=== PATIENT | female | born 2000 | race Caucasian/White ===

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

== ENCOUNTER 2018-01-01 13:10 | Emergency (ER) | payer OTHER ==
[~2018-01-01] VITALS: Ht 162.6 cm; Wt 63.5 kg
[~2018-01-01 13:10] MED LIST changes: +LIDO700A20 TOP; +Ultram50 MG PO
[2018-01-01] MEDS ORDERED: ASPI81CH PO (13:43)
[2018-01-01] MEDS ORDERED: Veetids 500500 MG PO (13:53)
== END 2018-01-01 14:02 | disposition home or self-care (01) ==
LOC: ER 13:10
DX: J02.9 Acute pharyngitis, unspecified (principal); Z88.5 Allergy status to narcotic agent; Z79.899 Other long term (current) drug therapy; Z79.82 Long term (current) use of aspirin
CPT/HCPCS: 99282; J1100

== ENCOUNTER 2018-02-18 22:34 | Emergency (ER) | payer OTHER ==
[~2018-02-18] VITALS: Ht 162.6 cm; Wt 63.5 kg
[~2018-02-18 22:34] MED LIST changes: +ASPI81CH PO; +Veetids 500500 MG PO
[2018-02-18] MEDS ORDERED: ASPI325EC (22:40)
== END 2018-02-18 23:49 | disposition home or self-care (01) ==
LOC: ER 22:34
DX: S29.012A Strain of muscle and tendon of back wall of thorax, initial encounter (principal); Z88.5 Allergy status to narcotic agent; X50.9XXA Other and unspecified overexertion or strenuous movements or postures, initial encounter
CPT/HCPCS: 71046; 93005; 93010; 99284-25

== ENCOUNTER 2018-03-19 21:44 | Emergency (ER) | payer OTHER ==
[~2018-03-19] VITALS: Ht 160 cm; Wt 65.8 kg
[~2018-03-19 21:44] MED LIST changes: +ASPI325EC
[2018-03-19 23:53] LABS: Source, Urine Clean Catch
[2018-03-19] MEDS ORDERED: ASPI81CH PO (23:56)
[2018-03-19] MEDS ORDERED: BIRTH CONTROL (23:56)
[2018-03-19 23:59] LABS: Bilirubin, Urine Neg (Neg); Blood, Urine Neg (Neg); Glucose Qualitative, Urine Neg (Neg); Ketones, Urine Neg (Neg); Leukocyte Esterase, Urine Neg (Neg); Nitrite, Urine Neg (Neg); Protein, Urine Neg (Neg); Urobilinogen, Urine 1+ (Normal); pH, Urine 6.5 (5.0-8.0)
[2018-03-20 00:04] LABS: BASOPHILS ABSOLUTE AUTO 0.07 K/mm3 (0.00-0.23); BASOPHILS PERCENT AUTO 1 % (0-2); EOSINOPHILS ABSOLUTE AUTO 0.06 K/mm3 (0.00-0.68); EOSINOPHILS PERCENT AUTO 1 % (0-6); Hematocrit 42.1 % (33.0-51.0); Hemoglobin 13.3 g/dL (11.5-16.0); IMMATURE GRAN ABSOLUTE AUTO 0.04 K/mm3 (0.00-0.10); IMMATURE GRAN PERCENT AUTO 0 % (0-1); LYMPHOCYTES ABSOLUTE AUTO 2.69 K/mm3 (0.84-5.20); LYMPHOCYTES PERCENT AUTO 28 % (21-46); MONOCYTES ABSOLUTE AUTO 0.98 K/mm3 (0.16-1.47); MONOCYTES PERCENT AUTO 10 % (4-13); Mean Corpuscular HGB 29.5 pg (26.0-34.0); Mean Corpuscular HGB Conc 31.6 g/dL (31.5-36.5); Mean Corpuscular Volume 93 fL (80-100); Mean Platelet Volume 11.4 fL (9.1-12.4); NEUTROPHILS ABSOLUTE AUTO 5.77 K/mm3 (1.96-9.15); NEUTROPHILS PERCENT AUTO 60 % (41-73); Platelet Count 310 K/mm3 (150-400); RDW Standard Deviation 44.7 fL (35.1-46.3); Red Blood Cell Count 4.51 M/mm3 (3.80-5.20); White Blood Cell Count 9.61 K/mm3 (4.00-11.30)
[2018-03-20 00:11] LABS: Appearance, Urine Hazy (Clear); Color, Urine Yellow (P-Yellow)
[2018-03-20 00:12] LABS: Amorphous Light (0-Heavy); Bacteria Rare /hpf; Mucus Mod (0-Heavy); Red Blood Cells, Urine Not Seen /hpf (0-2); Squamous Epithelial Cells Few /hpf (Few); White Blood Cells, Urine 0-2 /hpf (0-5)
[2018-03-20 00:22] LABS: Alanine Aminotransfer (ALT/SGP 47 U/L (12-78); Albumin, Blood 3.8 g/dL (3.4-5.0); Alk Phos 82 U/L (45-116); Anion Gap 10 mmol/L (6-16); Aspartate Aminotrans (AST/SGOT 29 U/L (12-37); Bilirubin, Total 0.5 mg/dL (0.1-1.0); Blood Urea Nitrogen 16 mg/dL (8-21); Bun/Creatinine Ratio 23.7 (12.0-20.0); CO2, Blood 26 mmol/L (21-32); Chloride, Blood 106 mmol/L (98-108); Creatinine, Blood 0.67 mg/dL (0.40-1.00); Globulin, Blood 3.9 g/dL (2.2-4.0); Glomerular Filtration Rate >60 (60-); Glucose, Blood 93 mg/dL (70-99); Sodium, Blood 142 mmol/L (136-145); Total Protein, Blood 7.7 g/dL (6.4-8.2)
[2018-03-20] MEDS ORDERED: Vibramycin100 MG PO (01:20)
== END 2018-03-20 01:37 | disposition home or self-care (01) ==
LOC: ER 21:44
PROVIDERS: Emergency Medicine
DX: N89.8 Other specified noninflammatory disorders of vagina (principal); Z79.82 Long term (current) use of aspirin
CPT/HCPCS: 36415; 80053; 81001; 81025; 83690; 85025; 96374; 99284-25; J0696; J2405

== ENCOUNTER 2018-08-08 23:23 | Emergency (ER) | payer OTHER ==
[~2018-08-08] VITALS: Ht 162.6 cm; Wt 65.8 kg
[~2018-08-08 23:23] MED LIST changes: +BIRTH CONTROL; +Vibramycin100 MG PO
== END 2018-08-09 02:05 | disposition home or self-care (01) ==
LOC: ER 23:23
DX: S09.90XA Unspecified injury of head, initial encounter (principal); W22.8XXA Striking against or struck by other objects, initial encounter; Z88.5 Allergy status to narcotic agent; Z79.82 Long term (current) use of aspirin
CPT/HCPCS: 99283

== ENCOUNTER → 2018-08-27 | Outpatient (CLI) | payer OTHER ==
[2018-08-27 19:07] LABS: BASOPHILS ABSOLUTE AUTO 0.06 K/mm3 (0.00-0.23); BASOPHILS PERCENT AUTO 1 % (0-2); EOSINOPHILS PERCENT AUTO 1 % (0-6); Hematocrit 39.5 % (33.0-51.0); Hemoglobin 12.9 g/dL (11.5-16.0); IMMATURE GRAN ABSOLUTE AUTO 0.02 K/mm3 (0.00-0.10); IMMATURE GRAN PERCENT AUTO 0 % (0-1); LYMPHOCYTES PERCENT AUTO 26 % (21-46); MONOCYTES ABSOLUTE AUTO 0.63 K/mm3 (0.16-1.47); MONOCYTES PERCENT AUTO 8 % (4-13); Mean Corpuscular HGB 29.6 pg (26.0-34.0); Mean Corpuscular HGB Conc 32.7 g/dL (31.5-36.5); Mean Corpuscular Volume 91 fL (80-100); Mean Platelet Volume 11.9 fL (9.1-12.4); NEUTROPHILS ABSOLUTE AUTO 4.84 K/mm3 (1.96-9.15); NEUTROPHILS PERCENT AUTO 63 % (41-73); Platelet Count 236 K/mm3 (150-400); RDW Coefficient Variation 12.4 % (11.7-14.2); RDW Standard Deviation 41.1 fL (35.1-46.3); Red Blood Cell Count 4.36 M/mm3 (3.80-5.20); White Blood Cell Count 7.65 K/mm3 (4.00-11.30)
[2018-08-27 20:55] LABS: Alanine Aminotransfer (ALT/SGP 39 U/L (12-78); Albumin/Globulin Ratio 1.2 (0.8-1.8); Alk Phos 84 U/L (50-136); Anion Gap 8 mmol/L (6-16); Aspartate Aminotrans (AST/SGOT 28 U/L (12-37); Bilirubin, Total 0.6 mg/dL (0.1-1.0); Blood Urea Nitrogen 13 mg/dL (8-24); Bun/Creatinine Ratio 18.1 (12.0-20.0); CO2, Blood 26 mmol/L (21-32); Calcium, Blood 8.8 mg/dL (8.5-10.1); Chloride, Blood 107 mmol/L (98-108); Creatinine, Blood 0.72 mg/dL (0.40-1.00); Globulin, Blood 3.4 g/dL (2.2-4.0); Glomerular Filtration Rate >60 (60-); Glucose, Blood 83 mg/dL (70-99); Potassium, Blood 3.5 mmol/L (3.5-5.5); Sodium, Blood 141 mmol/L (136-145); Total Protein, Blood 7.4 g/dL (6.4-8.2)
[2018-08-27 20:59] LABS: Thyroid Stimulating Hormone 0.961 uIU/mL (0.360-4.800)
== END | disposition home or self-care (01) ==
LOC: LAB SHORT 19:01 → LAB EV 19:01
PROVIDERS: Physician Assistant
DX: N91.2 Amenorrhea, unspecified (principal)
CPT/HCPCS: 80053; 84443; 84702; 85025

== ENCOUNTER 2018-10-19 00:58 | Emergency (ER) | payer OTHER ==
[~2018-10-19] VITALS: Ht 162.6 cm; Wt 65.8 kg
[~2018-10-19 00:58] MED LIST changes: +ASPI325 PO
[2018-10-19] MEDS ORDERED: Microgestin Fe1 EAC1 PO (01:11)
== END 2018-10-19 01:23 | disposition home or self-care (01) ==
LOC: ER 00:58
DX: T39.011A Poisoning by aspirin, accidental (unintentional), initial encounter (principal); Z88.5 Allergy status to narcotic agent; Z79.82 Long term (current) use of aspirin; Z79.899 Other long term (current) drug therapy
CPT/HCPCS: 99282

== ENCOUNTER → 2018-10-23 | Outpatient (CLI) | payer OTHER ==
[~2018-10-23] MED LIST changes: +Microgestin Fe1 EAC1 PO; +Vistaril25 MG PO
[2018-10-23 14:01] LABS: BASOPHILS ABSOLUTE AUTO 0.04 K/mm3 (0.00-0.23); BASOPHILS PERCENT AUTO 1 % (0-2); EOSINOPHILS ABSOLUTE AUTO 0.05 K/mm3 (0.00-0.68); EOSINOPHILS PERCENT AUTO 1 % (0-6); Hematocrit 39.8 % (33.0-51.0); Hemoglobin 13.2 g/dL (11.5-16.0); IMMATURE GRAN ABSOLUTE AUTO 0.02 K/mm3 (0.00-0.10); IMMATURE GRAN PERCENT AUTO 0 % (0-1); LYMPHOCYTES ABSOLUTE AUTO 1.36 K/mm3 (0.84-5.20); LYMPHOCYTES PERCENT AUTO 17 % (21-46); MONOCYTES ABSOLUTE AUTO 0.61 K/mm3 (0.16-1.47); MONOCYTES PERCENT AUTO 7 % (4-13); Mean Corpuscular HGB 30.1 pg (26.0-34.0); Mean Corpuscular HGB Conc 33.2 g/dL (31.5-36.5); Mean Corpuscular Volume 91 fL (80-100); Mean Platelet Volume 11.8 fL (9.1-12.4); NEUTROPHILS ABSOLUTE AUTO 6.16 K/mm3 (1.96-9.15); NEUTROPHILS PERCENT AUTO 75 % (41-73); Platelet Count 241 K/mm3 (150-400); RDW Coefficient Variation 12.7 % (11.7-14.2); RDW Standard Deviation 41.8 fL (35.1-46.3); Red Blood Cell Count 4.39 M/mm3 (3.80-5.20); White Blood Cell Count 8.24 K/mm3 (4.00-11.30)
[2018-10-23 14:11] LABS: Anion Gap 8 mmol/L (6-16); Blood Urea Nitrogen 10 mg/dL (8-24); Bun/Creatinine Ratio 13.5 (12.0-20.0); CO2, Blood 28 mmol/L (21-32); Calcium, Blood 9.3 mg/dL (8.5-10.1); Chloride, Blood 103 mmol/L (98-108); Creatinine, Blood 0.74 mg/dL (0.40-1.00); Glomerular Filtration Rate >60 (60-); Glucose, Blood 104 mg/dL (70-99); Sodium, Blood 139 mmol/L (136-145)
[2018-10-24 13:22] LABS: Candida species (DNA Probe) Positive (NEGATIVE); G. vaginalis (DNA Probe) Negative (NEGATIVE); T. vaginalis (DNA Probe) Negative (NEGATIVE)
[2018-10-25 05:09] LABS: CHLAMYDIA TRACHOMATIS, NAA Negative (Negative); NEISSERIA GONORRHOEAE, NAA Negative (Negative)
== END | disposition home or self-care (01) ==
LOC: LAB SHORT 13:53 → LAB EV 13:53
PROVIDERS: Physician Assistant
DX: R10.30 Lower abdominal pain, unspecified (principal); N91.1 Secondary amenorrhea
CPT/HCPCS: 80048; 84702; 85025; 87480; 87491; 87510; 87591; 87660

== ENCOUNTER 2018-11-22 20:29 | Emergency (ER) | payer OTHER ==
[~2018-11-22] VITALS: Ht 162.6 cm; Wt 68.0 kg
[~2018-11-22 20:29] MED LIST changes: -Vistaril25 MG PO
[2018-11-22 21:18] LABS: BASOPHILS ABSOLUTE AUTO 0.06 K/mm3 (0.00-0.23); BASOPHILS PERCENT AUTO 1 % (0-2); EOSINOPHILS ABSOLUTE AUTO 0.04 K/mm3 (0.00-0.68); EOSINOPHILS PERCENT AUTO 0 % (0-6); Hematocrit 43.3 % (33.0-51.0); Hemoglobin 13.8 g/dL (11.5-16.0); IMMATURE GRAN ABSOLUTE AUTO 0.02 K/mm3 (0.00-0.10); IMMATURE GRAN PERCENT AUTO 0 % (0-1); LYMPHOCYTES ABSOLUTE AUTO 2.61 K/mm3 (0.84-5.20); LYMPHOCYTES PERCENT AUTO 27 % (21-46); MONOCYTES ABSOLUTE AUTO 0.78 K/mm3 (0.16-1.47); MONOCYTES PERCENT AUTO 8 % (4-13); Mean Corpuscular HGB 29.9 pg (26.0-34.0); Mean Corpuscular HGB Conc 31.9 g/dL (31.5-36.5); Mean Corpuscular Volume 94 fL (80-100); NEUTROPHILS ABSOLUTE AUTO 6.14 K/mm3 (1.96-9.15); NEUTROPHILS PERCENT AUTO 64 % (41-73); Platelet Count 278 K/mm3 (150-400); RDW Coefficient Variation 12.4 % (11.7-14.2); RDW Standard Deviation 42.5 fL (35.1-46.3); Red Blood Cell Count 4.62 M/mm3 (3.80-5.20); White Blood Cell Count 9.65 K/mm3 (4.00-11.30)
[2018-11-22 21:37] LABS: Alanine Aminotransfer (ALT/SGP 37 U/L (12-78); Albumin, Blood 4.3 g/dL (3.4-5.0); Albumin/Globulin Ratio 1.1 (0.8-1.8); Alk Phos 93 U/L (50-136); Anion Gap 6 mmol/L (6-16); Aspartate Aminotrans (AST/SGOT 42 U/L (12-37); Bilirubin, Total 0.7 mg/dL (0.1-1.0); Blood Urea Nitrogen 12 mg/dL (8-24); Bun/Creatinine Ratio 16.3 (12.0-20.0); CO2, Blood 26 mmol/L (21-32); Calcium, Blood 9.3 mg/dL (8.5-10.1); Chloride, Blood 110 mmol/L (98-108); Creatinine, Blood 0.73 mg/dL (0.40-1.00); Globulin, Blood 3.8 g/dL (2.2-4.0); Glomerular Filtration Rate >60 (60-); Glucose, Blood 97 mg/dL (70-99); Potassium, Blood 3.7 mmol/L (3.5-5.5); Sodium, Blood 142 mmol/L (136-145); Total Protein, Blood 8.1 g/dL (6.4-8.2); Troponin I <0.015 ng/mL (0.000-0.040)
[2018-11-22] MEDS ORDERED: Vistaril25 MG PO (21:59)
== END 2018-11-22 22:29 | disposition home or self-care (01) ==
LOC: ER 20:29
PROVIDERS: Physician Assistant
DX: K21.9 Gastro-esophageal reflux disease without esophagitis (principal); F43.9 Reaction to severe stress, unspecified; F41.9 Anxiety disorder, unspecified; Z88.5 Allergy status to narcotic agent; Z79.82 Long term (current) use of aspirin; Z79.899 Other long term (current) drug therapy
CPT/HCPCS: 36415; 71046; 80053; 84484; 85025; 99285-25

== ENCOUNTER 2019-06-07 20:52 | Emergency (ER) | payer OTHER ==
[~2019-06-07] VITALS: Ht 162.6 cm; Wt 65.8 kg
[~2019-06-07 20:52] MED LIST changes: +Vistaril25 MG PO
[2019-06-07 22:44] LABS: BASOPHILS ABSOLUTE AUTO 0.05 K/mm3 (0.00-0.23); BASOPHILS PERCENT AUTO 1 % (0-2); EOSINOPHILS ABSOLUTE AUTO 0.07 K/mm3 (0.00-0.68); EOSINOPHILS PERCENT AUTO 1 % (0-6); Hematocrit 40.8 % (33.0-51.0); Hemoglobin 13.4 g/dL (11.5-16.0); IMMATURE GRAN ABSOLUTE AUTO 0.01 K/mm3 (0.00-0.10); IMMATURE GRAN PERCENT AUTO 0 % (0-1); LYMPHOCYTES ABSOLUTE AUTO 1.83 K/mm3 (0.84-5.20); LYMPHOCYTES PERCENT AUTO 26 % (21-46); MONOCYTES ABSOLUTE AUTO 0.74 K/mm3 (0.16-1.47); MONOCYTES PERCENT AUTO 11 % (4-13); Mean Corpuscular HGB 29.8 pg (26.0-34.0); Mean Corpuscular HGB Conc 32.8 g/dL (31.5-36.5); Mean Corpuscular Volume 91 fL (80-100); Mean Platelet Volume 11.6 fL (9.1-12.4); NEUTROPHILS ABSOLUTE AUTO 4.27 K/mm3 (1.96-9.15); NEUTROPHILS PERCENT AUTO 61 % (41-73); Platelet Count 256 K/mm3 (150-400); RDW Coefficient Variation 12.3 % (11.7-14.2); RDW Standard Deviation 41.1 fL (35.1-46.3); Red Blood Cell Count 4.49 M/mm3 (3.80-5.20); White Blood Cell Count 6.97 K/mm3 (4.00-11.30)
[2019-06-07 23:05] LABS: Alanine Aminotransfer (ALT/SGP 38 U/L (12-78); Albumin, Blood 3.9 g/dL (3.4-5.0); Albumin/Globulin Ratio 1.1 (0.8-1.8); Alk Phos 80 U/L (50-136); Anion Gap 6 mmol/L (6-16); Aspartate Aminotrans (AST/SGOT 26 U/L (12-37); Bilirubin, Total 0.6 mg/dL (0.1-1.0); Blood Urea Nitrogen 12 mg/dL (8-24); Bun/Creatinine Ratio 16.7 (12.0-20.0); CO2, Blood 26 mmol/L (21-32); Chloride, Blood 109 mmol/L (98-108); Creatinine, Blood 0.72 mg/dL (0.40-1.00); Globulin, Blood 3.7 g/dL (2.2-4.0); Glomerular Filtration Rate >60 (60-); Glucose, Blood 90 mg/dL (70-99); Magnesium, Blood 1.9 mg/dL (1.6-2.4); Potassium, Blood 3.7 mmol/L (3.5-5.5); Sodium, Blood 141 mmol/L (136-145); Total Protein, Blood 7.6 g/dL (6.4-8.2); Troponin I <0.015 ng/mL (0.000-0.040)
== END 2019-06-08 01:10 | disposition home or self-care (01) ==
LOC: ER 20:52
PROVIDERS: Emergency Medicine
DX: R00.2 Palpitations (principal); R00.0 Tachycardia, unspecified; R42 Dizziness and giddiness; Q21.3 Tetralogy of Fallot; Z88.5 Allergy status to narcotic agent; Z79.82 Long term (current) use of aspirin
CPT/HCPCS: 71046; 71260; 80053; 83735; 84484; 85025; 85379; 93005; 93010; 99285-25; Q9967

== ENCOUNTER 2019-07-18 22:14 | Emergency (ER) | payer OTHER ==
[~2019-07-18] VITALS: Ht 160 cm; Wt 65.8 kg
[2019-07-18 22:45] LABS: Influenza A Negative (NEGATIVE); Influenza B Negative (NEGATIVE)
[2019-07-18] MEDS ORDERED: OSELTAMIVIR PHO75 MG PO (23:48)
== END 2019-07-19 00:10 | disposition home or self-care (01) ==
LOC: ER 22:14
PROVIDERS: Emergency Medicine
DX: J11.1 Influenza due to unidentified influenza virus with other respiratory manifestations (principal); Z88.5 Allergy status to narcotic agent; Z79.82 Long term (current) use of aspirin
CPT/HCPCS: 87804; 99283

== ENCOUNTER → 2019-10-12 | Outpatient (CLI) | payer OTHER ==
[~2019-10-12] MED LIST changes: +OSELTAMIVIR PHO75 MG PO
[2019-10-26 12:12] LABS: CHLAMYDIA TRACHOMATIS, NAA Negative (Negative); NEISSERIA GONORRHOEAE, NAA Negative (Negative)
== END | disposition home or self-care (01) ==
LOC: LAB 12:22 → LAB SHORT 12:22
PROVIDERS: Obstetrics & Gynecology
DX: Z01.419 Encounter for gynecological examination (general) (routine) without abnormal findings (principal); Z11.3 Encounter for screening for infections with a predominantly sexual mode of transmission
CPT/HCPCS: 87491; 87591; 87624; 87625; G0123

== ENCOUNTER 2020-01-14 21:08 | Emergency (ER) | payer OTHER ==
[~2020-01-14] VITALS: Ht 160 cm; Wt 81.7 kg
[~2020-01-14 21:08] MED LIST changes: +AUROVELA FE PO
== END 2020-01-14 22:57 | disposition left against medical advice (07) ==
LOC: ER 21:08
DX: R04.0 Epistaxis (principal); R07.9 Chest pain, unspecified; R11.0 Nausea; Z79.82 Long term (current) use of aspirin; Z87.74 Personal history of (corrected) congenital malformations of heart and circulatory system; Z79.3 Long term (current) use of hormonal contraceptives; Z53.21 Procedure and treatment not carried out due to patient leaving prior to being seen by health care provider
CPT/HCPCS: 99282

== ENCOUNTER → 2020-02-21 | Outpatient (CLI) | payer OTHER | END | disposition home or self-care (01) | LOC: LAB SHORT 12:37 → LAB EV 12:37 | DX: J02.9 Acute pharyngitis, unspecified (principal) | CPT/HCPCS: 87081 ==

== ENCOUNTER → 2021-04-05 | Outpatient (CLI) | payer OTHER ==
[2021-04-09 14:11] LABS: HPV 16 Negative (Negative); HPV 18 Negative (Negative); HPV OTHER HR TYPES Negative (Negative)
== END | disposition home or self-care (01) ==
LOC: LAB 17:12 → LAB SHORT 17:12
PROVIDERS: Obstetrics & Gynecology
DX: Z01.419 Encounter for gynecological examination (general) (routine) without abnormal findings (principal)
CPT/HCPCS: 87624; G0123

== ENCOUNTER 2021-09-11 20:27 | Emergency (ER) | payer OTHER ==
[~2021-09-11] VITALS: Ht 167.6 cm; Wt 72.6 kg
[2021-09-11 20:57] LABS: BASOPHILS ABSOLUTE AUTO 0.06 K/mm3 (0.00-0.23); BASOPHILS PERCENT AUTO 1 % (0-2); EOSINOPHILS ABSOLUTE AUTO 0.12 K/mm3 (0.00-0.68); EOSINOPHILS PERCENT AUTO 1 % (0-6); Hematocrit 40.5 % (33.0-51.0); Hemoglobin 13.4 g/dL (11.5-16.0); IMMATURE GRAN ABSOLUTE AUTO 0.03 K/mm3 (0.00-0.10); IMMATURE GRAN PERCENT AUTO 0 % (0-1); LYMPHOCYTES PERCENT AUTO 32 % (21-46); MONOCYTES ABSOLUTE AUTO 0.88 K/mm3 (0.16-1.47); MONOCYTES PERCENT AUTO 10 % (4-13); Mean Corpuscular HGB 30.2 pg (26.0-34.0); Mean Corpuscular HGB Conc 33.1 g/dL (31.5-36.5); Mean Corpuscular Volume 91 fL (80-100); Mean Platelet Volume 11.4 fL (9.1-12.4); NEUTROPHILS PERCENT AUTO 56 % (41-73); Platelet Count 243 K/mm3 (150-400); RDW Coefficient Variation 12.5 % (11.7-14.2); RDW Standard Deviation 42.4 fL (35.1-46.3); Red Blood Cell Count 4.43 M/mm3 (3.80-5.20); White Blood Cell Count 8.79 K/mm3 (4.00-11.30)
[2021-09-11 21:22] LABS: Alanine Aminotransfer (ALT/SGP 40 U/L (12-78); Albumin, Blood 3.9 g/dL (3.4-5.0); Albumin/Globulin Ratio 1.2 (0.8-1.8); Alk Phos 85 U/L (50-136); Anion Gap 6 mmol/L (6-16); Aspartate Aminotrans (AST/SGOT 22 U/L (12-37); Bilirubin, Total 0.7 mg/dL (0.1-1.0); Blood Urea Nitrogen 11 mg/dL (8-24); Bun/Creatinine Ratio 16.4 (12.0-20.0); CO2, Blood 24 mmol/L (21-32); Chloride, Blood 110 mmol/L (98-108); Creatinine, Blood 0.67 mg/dL (0.40-1.00); Globulin, Blood 3.3 g/dL (2.2-4.0); Glomerular Filtration Rate >60 (60-); Glucose, Blood 103 mg/dL (70-99); Potassium, Blood 3.7 mmol/L (3.5-5.5); Sodium, Blood 140 mmol/L (136-145); Total Protein, Blood 7.2 g/dL (6.4-8.2)
[2021-09-11 22:17] LABS: Source, Urine Clean Catch
[2021-09-11 22:19] LABS: Bilirubin, Urine Neg (Neg); Blood, Urine Neg (Neg); Glucose Qualitative, Urine Neg (Neg); Ketones, Urine Neg (Neg); Leukocyte Esterase, Urine Neg (Neg); Nitrite, Urine Neg (Neg); Protein, Urine Neg (Neg); Urobilinogen, Urine NORM (Normal); pH, Urine 6.5 (5.0-8.0)
[2021-09-11 22:24] LABS: Appearance, Urine Clear (Clear); Color, Urine Pale Yellow (P-Yellow)
== END 2021-09-11 22:57 | disposition home or self-care (01) ==
LOC: ER 20:27
PROVIDERS: Physician Assistant
DX: M79.604 Pain in right leg (principal); L53.9 Erythematous condition, unspecified; Z88.5 Allergy status to narcotic agent; Z79.899 Other long term (current) drug therapy
CPT/HCPCS: 36415; 80053; 81003; 83690; 84484; 85025

== ENCOUNTER → 2022-08-28 | Outpatient (CLI) | payer OTHER ==
[2022-08-30 11:11] LABS: HPV 16 Negative (Negative); HPV 18 Negative (Negative); HPV OTHER HR TYPES Negative (Negative)
== END | disposition home or self-care (01) ==
LOC: LAB 17:25 → LAB SHORT 17:25
PROVIDERS: Obstetrics & Gynecology
DX: Z01.419 Encounter for gynecological examination (general) (routine) without abnormal findings (principal)
CPT/HCPCS: 87624; G0145

== ENCOUNTER 2022-10-08 11:51 | Emergency (ER) | payer OTHER ==
[~2022-10-08] VITALS: Ht 160 cm; Wt 90.7 kg
[2022-10-08 12:26] LABS: BASOPHILS ABSOLUTE AUTO 0.04 K/mm3 (0.00-0.23); BASOPHILS PERCENT AUTO 0 % (0-2); EOSINOPHILS ABSOLUTE AUTO 0.09 K/mm3 (0.00-0.68); EOSINOPHILS PERCENT AUTO 1 % (0-6); Hematocrit 40.9 % (33.0-51.0); Hemoglobin 13.2 g/dL (11.5-16.0); IMMATURE GRAN ABSOLUTE AUTO 0.03 K/mm3 (0.00-0.10); IMMATURE GRAN PERCENT AUTO 0 % (0-1); LYMPHOCYTES PERCENT AUTO 18 % (21-46); MONOCYTES ABSOLUTE AUTO 0.86 K/mm3 (0.16-1.47); MONOCYTES PERCENT AUTO 9 % (4-13); Mean Corpuscular HGB 28.9 pg (26.0-34.0); Mean Corpuscular HGB Conc 32.3 g/dL (31.5-36.5); Mean Corpuscular Volume 90 fL (80-100); Mean Platelet Volume 11.4 fL (9.1-12.4); NEUTROPHILS ABSOLUTE AUTO 6.89 K/mm3 (1.96-9.15); NEUTROPHILS PERCENT AUTO 72 % (41-73); Platelet Count 277 K/mm3 (150-400); RDW Coefficient Variation 12.6 % (11.7-14.2); RDW Standard Deviation 41.3 fL (35.1-46.3); Red Blood Cell Count 4.57 M/mm3 (3.80-5.20); White Blood Cell Count 9.61 K/mm3 (4.00-11.30)
[2022-10-08 12:49] LABS: Albumin, Blood 3.7 g/dL (3.4-5.0); Bilirubin, Total 0.7 mg/dL (0.1-1.0); Bun/Creatinine Ratio 16.8 (12.0-20.0); Creatinine, Blood 0.71 mg/dL (0.40-1.00); Globulin, Blood 3.7 g/dL (2.2-4.0); Potassium, Blood 3.8 mmol/L (3.5-5.5); Total Protein, Blood 7.4 g/dL (6.4-8.2)
[2022-10-08 17:30] VITALS: BP 130/85
== END 2022-10-08 17:43 | disposition home or self-care (01) ==
LOC: ER 11:51
PROVIDERS: Physician Assistant
DX: R07.9 Chest pain, unspecified (principal); Z88.5 Allergy status to narcotic agent; Z95.3 Presence of xenogenic heart valve; Z79.82 Long term (current) use of aspirin
CPT/HCPCS: 71046; 71260; 80053; 84484; 84703; 85025; 85379; 93005; 93010; Q9967

== ENCOUNTER → 2023-02-28 | Outpatient (CLI) | payer OTHER | LOC: LAB SHORT 16:05 → LAB 16:05 | DX: N39.0 Urinary tract infection, site not specified (principal) | CPT/HCPCS: 87086 ==

== ENCOUNTER 2023-03-16 02:39 | Emergency (ER) | payer OTHER ==
[~2023-03-16] VITALS: Ht 160 cm; Wt 97.5 kg
[2023-03-16] MEDS ORDERED: ASPI325 PO (02:54)
[2023-03-16 03:09] LABS: BASOPHILS ABSOLUTE AUTO 0.06 K/mm3 (0.00-0.23); BASOPHILS PERCENT AUTO 1 % (0-2); EOSINOPHILS ABSOLUTE AUTO 0.36 K/mm3 (0.00-0.68); EOSINOPHILS PERCENT AUTO 3 % (0-6); Hematocrit 40.3 % (33.0-51.0); IMMATURE GRAN ABSOLUTE AUTO 0.03 K/mm3 (0.00-0.10); IMMATURE GRAN PERCENT AUTO 0 % (0-1); LYMPHOCYTES ABSOLUTE AUTO 2.28 K/mm3 (0.84-5.20); LYMPHOCYTES PERCENT AUTO 21 % (21-46); MONOCYTES ABSOLUTE AUTO 1.41 K/mm3 (0.16-1.47); MONOCYTES PERCENT AUTO 13 % (4-13); Mean Corpuscular HGB 29.1 pg (26.0-34.0); Mean Corpuscular HGB Conc 32.3 g/dL (31.5-36.5); Mean Corpuscular Volume 90 fL (80-100); Mean Platelet Volume 11.4 fL (9.1-12.4); NEUTROPHILS ABSOLUTE AUTO 6.54 K/mm3 (1.96-9.15); NEUTROPHILS PERCENT AUTO 61 % (41-73); Platelet Count 290 K/mm3 (150-400); RDW Coefficient Variation 13.2 % (11.7-14.2); RDW Standard Deviation 43.5 fL (35.1-46.3); Red Blood Cell Count 4.46 M/mm3 (3.80-5.20); White Blood Cell Count 10.68 K/mm3 (4.00-11.30)
[2023-03-16 03:37] LABS: Alanine Aminotransfer (ALT/SGP 40 U/L (12-78); Albumin, Blood 3.5 g/dL (3.4-5.0); Albumin/Globulin Ratio 0.9 (0.8-1.8); Alk Phos 111 U/L (50-136); Anion Gap 5 mmol/L (6-16); Aspartate Aminotrans (AST/SGOT 23 U/L (12-37); Beta HCG, Quantitative, Serum <1 mIU/mL (0-3); Bilirubin, Total 0.5 mg/dL (0.1-1.0); Blood Urea Nitrogen 14 mg/dL (8-24); Bun/Creatinine Ratio 16.1 (12.0-20.0); CO2, Blood 25 mmol/L (21-32); Calcium, Blood 8.4 mg/dL (8.5-10.1); Chloride, Blood 111 mmol/L (98-108); Creatinine, Blood 0.87 mg/dL (0.40-1.00); Globulin, Blood 3.9 g/dL (2.2-4.0); Glomerular Filtration Rate 95 (60-); Glucose, Blood 108 mg/dL (70-99); Potassium, Blood 3.5 mmol/L (3.5-5.5); Sodium, Blood 141 mmol/L (136-145); Total Protein, Blood 7.4 g/dL (6.4-8.2)
[2023-03-16 05:28] VITALS: BP 132/90
== END 2023-03-16 05:29 | disposition home or self-care (01) ==
LOC: ER 02:39
PROVIDERS: Student in an Organized Health Care Education/Training Program
DX: O03.9 Complete or unspecified spontaneous abortion without complication (principal); Z88.0 Allergy status to penicillin; Z88.5 Allergy status to narcotic agent; Z79.82 Long term (current) use of aspirin
CPT/HCPCS: 80053; 84702; 85025; 86900; 86901; 99284-25; A9270

== ENCOUNTER → 2023-04-21 | Outpatient (CLI) | payer OTHER | END | disposition home or self-care (01) | LOC: LAB 12:00 → LAB SHORT 12:00 | DX: R30.0 Dysuria (principal) | CPT/HCPCS: 87086 ==

== ENCOUNTER → 2023-05-08 | Outpatient (CLI) | payer OTHER ==
[2023-05-08 18:02] LABS: Source, Urine Clean Catch
[2023-05-08 19:53] LABS: Bacteria Few /hpf; Red Blood Cells, Urine 0-2 /hpf (0-2); Squamous Epithelial Cells Few /hpf (Few); White Blood Cells, Urine 0-2 /hpf (0-5)
[2023-05-08 19:54] LABS: Transitional Epithelial Cells Rare /hpf (0-Rare)
[2023-05-08 19:55] LABS: U Amphetamine Screen Not Detected; U Barbituate Screen Not Detected; U Benzodiazapine Screen Not Detected; U Buprenorphine Screen Not Detected; U Cannabinoids Screen Not Detected; U Cocaine Screen Not Detected; U Methadone Screen Not Detected; U Methamphetamine Screen Not Detected; U Opiates Screen Not Detected; U Oxycodone Screen Not Detected; U Phencyclidine Screen Not Detected
== END ==
LOC: LAB 18:00 → LAB SHORT 18:00
PROVIDERS: Obstetrics & Gynecology
DX: Z34.01 Encounter for supervision of normal first pregnancy, first trimester (principal)
CPT/HCPCS: 81015; 87086

== ENCOUNTER → 2023-05-17 | Outpatient (CLI) | payer OTHER | LOC: LAB SHORT 11:00 → LAB 11:00 | DX: R30.0 Dysuria (principal) | CPT/HCPCS: 87086 ==

== ENCOUNTER → 2023-09-10 | Outpatient (CLI) | payer OTHER | END | disposition home or self-care (01) | LOC: LAB 18:46 → LAB SHORT 18:46 | DX: R30.0 Dysuria (principal) ==

== ENCOUNTER → 2023-09-16 | Outpatient (CLI) | payer OTHER ==
[2023-09-16 17:02] LABS: Source, Urine Clean Catch
[2023-09-16 19:27] LABS: Bacteria Many /hpf; Red Blood Cells, Urine Not Seen /hpf (0-2); Squamous Epithelial Cells Mod /hpf (Few)
[2023-09-16 19:58] LABS: Bacterial Vaginosis PCR Negative (NEGATIVE); Candida Group, PCR NOT DETECTED (NOT DETECT); Candida glabrata-krusei, PCR NOT DETECTED (NOT DETECT)
== END | disposition home or self-care (01) ==
LOC: LAB 16:57 → LAB SHORT 16:57
PROVIDERS: Obstetrics & Gynecology
DX: N76.0 Acute vaginitis (principal); R30.0 Dysuria
CPT/HCPCS: 81015; 87086; 87481; 87661; 87801

== ENCOUNTER 2023-12-01 20:23 | Observation (INO) | payer OTHER ==
[~2023-12-01] VITALS: Ht 162.6 cm; Wt 106.2 kg
[2023-12-01] VITALS (13 sets, daily range): BP systolic 115–130; BP diastolic 58–69
[2023-12-01 21:05] LABS: BASOPHILS ABSOLUTE AUTO 0.03 K/mm3 (0.00-0.23); BASOPHILS PERCENT AUTO 0 % (0-2); EOSINOPHILS ABSOLUTE AUTO 0.23 K/mm3 (0.00-0.68); EOSINOPHILS PERCENT AUTO 2 % (0-6); Hematocrit 31.7 % (33.0-51.0); Hemoglobin 10.6 g/dL (11.5-16.0); IMMATURE GRAN ABSOLUTE AUTO 0.05 K/mm3 (0.00-0.10); IMMATURE GRAN PERCENT AUTO 1 % (0-1); LYMPHOCYTES ABSOLUTE AUTO 1.89 K/mm3 (0.84-5.20); LYMPHOCYTES PERCENT AUTO 18 % (21-46); MONOCYTES ABSOLUTE AUTO 0.75 K/mm3 (0.16-1.47); MONOCYTES PERCENT AUTO 7 % (4-13); Mean Corpuscular HGB 30.3 pg (26.0-34.0); Mean Corpuscular HGB Conc 33.4 g/dL (31.5-36.5); Mean Corpuscular Volume 91 fL (80-100); Mean Platelet Volume 11.8 fL (9.1-12.4); NEUTROPHILS ABSOLUTE AUTO 7.42 K/mm3 (1.96-9.15); NEUTROPHILS PERCENT AUTO 72 % (41-73); Platelet Count 269 K/mm3 (150-400); RDW Coefficient Variation 13.3 % (11.7-14.2); RDW Standard Deviation 43.8 fL (35.1-46.3); White Blood Cell Count 10.37 K/mm3 (4.00-11.30)
[2023-12-01 21:25] LABS: Albumin, Blood 2.8 g/dL (3.4-5.0); Albumin/Globulin Ratio 0.7 (0.8-1.8); Bilirubin, Total 0.3 mg/dL (0.1-1.0); Bun/Creatinine Ratio 9.6 (12.0-20.0); Calcium, Blood 8.8 mg/dL (8.5-10.1); Creatinine, Blood 1.04 mg/dL (0.40-1.00); Globulin, Blood 3.9 g/dL (2.2-4.0); Potassium, Blood 3.5 mmol/L (3.5-5.5); Total Protein, Blood 6.7 g/dL (6.4-8.2)
[2023-12-01 21:29] LABS: Protein, Urine Random 14.8 mg/dL (0.0-11.9); Protein/Creat Ratio, Ur Random 0.1
[2023-12-01] MEDS ORDERED: Acetaminophen 325 MG TABLET PO ONE (21:35)
[2023-12-01] MEDS ORDERED: Lactated Ringer's 1,000 ML IV SCH (22:05)
[2023-12-01] MEDS ORDERED: Magnesium Sulfate 500 ML IV SCH (22:05)
[2023-12-01] MEDS ORDERED: Calcium Gluconate 0.465 mEq/ml 10 ml Vial IV PRN (22:05)
[2023-12-01] MEDS ORDERED: Magnesium Sul 4 GM/Water100 ML 100 ML IV ONE (22:05)
[2023-12-01] MEDS ORDERED: Labetalol HCL 5 MG/ML 4ML Injection (Single Dose) IV PRN ×2 (22:10→23:00)
[2023-12-01 22:32] LABS: Prothrombin Time Results 10.7 Sec (9.7-11.5)
[2023-12-01] MEDS ORDERED: ENOX40I SC (22:53)
[2023-12-01] MEDS ORDERED: Labetalol HCL 5 MG/ML 4ML Injection (Single Dose) IV ONE (23:00)
[2023-12-01] MEDS ORDERED: Labetalol HCL 5 MG/ML 20MLVIAL IV PRN (23:00)
[2023-12-01] MEDS ORDERED: HydrALAZINE HCl 20 MG / ML 1ML Vial IV PRN (23:00)
[2023-12-01] MEDS ORDERED: Calcium Gluconate 0.465 mEq/ml 10 ml Vial IV ONE (23:00)
[2023-12-01 23:04] LABS: Magnesium, Blood 1.6 mg/dL (1.6-2.4)
[2023-12-01] MEDS ORDERED: Calcium Carbonate 500 MG Tab Chew PO PRN (23:05)
[2023-12-01] MEDS ORDERED: Acetaminophen 500 MG Tab PO PRN (23:05)
[2023-12-01] MEDS ORDERED: Diazepam 5 MG / ML 2ML SYR IV PRN (23:05)
[2023-12-01] MEDS ORDERED: Zolpidem Tartrate 5 MG Tab PO PRN (23:05)
[2023-12-01] MEDS ORDERED: Ondansetron HCl 2 MG / ML 2ML Vial IV PRN (23:10)
[2023-12-01] MEDS ORDERED: PRENATAL TABLE1 EAC2 PO (23:14)
[2023-12-02] VITALS (22 sets, daily range): BP systolic 114–131; BP diastolic 56–75
[2023-12-02] MEDS ORDERED: Calcium Gluconate 0.465 mEq/ml 10 ml Vial IV PRN (06:20)
[2023-12-02] MEDS ORDERED: Labetalol HCL 5 MG/ML 4ML Injection (Single Dose) IV SCH (06:25)
[2023-12-02 08:09] LABS: Albumin, Blood 2.4 g/dL (3.4-5.0); Albumin/Globulin Ratio 0.6 (0.8-1.8); Bilirubin, Total 0.2 mg/dL (0.1-1.0); Bun/Creatinine Ratio 13.1 (12.0-20.0); Calcium, Blood 7.5 mg/dL (8.5-10.1); Creatinine, Blood 0.69 mg/dL (0.40-1.00); Globulin, Blood 3.7 g/dL (2.2-4.0); Potassium, Blood 3.4 mmol/L (3.5-5.5); Total Protein, Blood 6.1 g/dL (6.4-8.2)
--- NOTE | 2023-12-02 08:27 | NUR ---
0800: pt awake and alert. denies any chest pain or sob. lungs clear through out. regular heart rythmn noted. biox and vs wnl. pitting edema noted ble. pt reports that edema is not as bad as the day before. reports h/a 3/10 in pain. states that this is also an improvement. Tylenol given to see if h/a will further improve. Pt denies any visual disturbances but reports feeling "foggy". Dr. Mercado at bedside. All s/s discussed with provider. Discussed need for tele. Dr. Mercado reports that this is not necessary. Discussed need for seizure pads and PAS to be applied. Both applied immediately. Pt shared that she felt she may have been having some anxiety last night also. Denies severe features that pt was c/o last night. States "I feel better". Things to report to Rn and staff discussed with patient and Dr. Mercado. Dr. Mercado feels no need for an echo or saddle lining stitcher consult at this time. Pt has a support per, father of her baby, and baby in room with her. Pt is instructed to start pumping to increase her supply for. Pt demonstrates understanding and was able to pump 20cc. S.O. Enrike, very helpful and supportive and assisting with pt and nb care well.
[2023-12-02] MEDS ORDERED: Docusate Sodium 100 MG Cap PO SCH (09:00)
[2023-12-02] MEDS ORDERED: Prenatal Vit/FE Fumarate/FA 1 Tab PO SCH (09:00)
--- NOTE | 2023-12-02 10:08 | NUR ---
PT'S MOTHER IS HERE AND IS CONCERNED ABOUT THE FACT THAT PT HAS NOT BEEN ORDERED AN ECHO AND CARIOLOGIST CONSULT. DISCUSSED THIS WITH PT AND DISCUSSED THAT WE TALKED TO DR. CARR ABOUT THAT THIS MORNING AND THE REASONING BEHIND NOT ORDERING THAT AT THIS TIME. PT IS STILL CONCERNED ABOUT THE INTEGRITY OF HER HEART VALVE AND IS REQUESTING THAT I ASK HER PROVIDER ABOUT THE ECHO. DR. SANCHEZ IS THE PT'S DR AND THAT IS WHO SHE HAD ESTABLISHED CARE WITH. SHE IS FINE SEEING DR CARR BUT WOULD PREFER DR. SANCHEZ BE CALLED TOO. I ASSURED HER BOTH DR'S WERE COMMUNICATING. DR SANCHEZ IS CONSULTING SENIOR PRACTICE DIRECTOR TODAY AND SINCE IT IS HER ESTABLISHED CARE PT I CALLED DR. SANCHEZ TO UPDATE HER OF PT AND FAMILY'S CONCERN. ECHO ORDERED. SPOKE WITH NURSING TECHNOLOGY ASSISTANT AND SHE WAS NOTIFIED OF NEED FOR ECHO. PT DOES NOT C/O OF ANY CHEST PAIN OR SOB. PT IS INCREASINGLY ANXIOUS ABOUT THE LACK OF CARDIAC EVALUATION.
--- NOTE | 2023-12-02 11:11 | NUR ---
PT UP INDEPENDANTLY TO [facility] WITH MINIMAL ASSIST BY Monica MATTHEWS. PT DENIES SOB OR ANY CHEST PAIN. TOLS WELL. LUNGS REMAIN CLEAR. RR 20. DTRS DIFFICULT TO ASSESS. NO CLONUS, PT REPORTS SWELLING SEEMS TO BE DECREASING.
--- NOTE | 2023-12-02 12:03 | NUR ---
1120: ROOM SERVICE WAITER/WAITRESS HERE FOR ECHO
[2023-12-02 13:17] LABS: Albumin, Blood 2.7 g/dL (3.4-5.0); Albumin/Globulin Ratio 0.7 (0.8-1.8); Bilirubin, Total 0.3 mg/dL (0.1-1.0); Bun/Creatinine Ratio 10.4 (12.0-20.0); Calcium, Blood 7.2 mg/dL (8.5-10.1); Creatinine, Blood 0.67 mg/dL (0.40-1.00); Globulin, Blood 3.9 g/dL (2.2-4.0); Magnesium, Blood 5.9 mg/dL (1.6-2.4); Potassium, Blood 3.5 mmol/L (3.5-5.5); Total Protein, Blood 6.6 g/dL (6.4-8.2)
[2023-12-02] MEDS ORDERED: Enoxaparin 40 MG/0.4 ML SYR SC SCH (19:00)
[2023-12-02 19:07] LABS: Albumin, Blood 2.5 g/dL (3.4-5.0); Albumin/Globulin Ratio 0.7 (0.8-1.8); Bilirubin, Total 0.2 mg/dL (0.1-1.0); Creatinine, Blood 0.73 mg/dL (0.40-1.00); Globulin, Blood 3.8 g/dL (2.2-4.0); Magnesium, Blood 5.9 mg/dL (1.6-2.4); Potassium, Blood 3.5 mmol/L (3.5-5.5); Total Protein, Blood 6.3 g/dL (6.4-8.2)
--- NOTE | 2023-12-02 20:00 | NUR ---
CALL TO TO REPORT SIGNIFICANT WEIGHT GAIN. PER PATEINT REPORT SHE WAS APPROX. 235LB ONE WEEK PRIOR TO DELIVERY (4 DAYS AGO). WEIGHT IN HOSPITAL AT 1830 WAS 160.2KG (352.44LB). NO ORDERS RECEIVED AT THIS TIME.
--- NOTE | 2023-12-02 20:26 | NUR ---
THIS RN WEIGHED PATIENT AT BEDSIDE. WEIGHT IS 106.2KG (233LB). UPDATED ON WEIGHT. NO ORDERS RECEIVED
--- NOTE | 2023-12-02 22:28 | NUR ---
PT BIOX READING 84-85%. RN INTO ROOM. PT SLEEPING SOUNDLY ON HER BACK. RN AWAKENED PT AND INSTRUCTED HER TO TAKE 3-4 DEEP BREATHS. BIOX UP TO 91%. PT SAT UP AND BEGAN SPEAKING WITH RN, BIOX RAISED TO 95% AND REMAINED. LUNG SOUNDS CLEAR, DTR 2+. PT REPORTS THAT SHE "QUITS BREATHING IN HER SLEEP" AND THAT HER CAGER OPERATOR RECOMMENDED SHE GET A SLEEP STUDY. NOTIFIED. ORDERS TO CONSULT RT FOR CPAP WHILE SLEEPING IF PT BIOX DROPS BELOW 90% AGAIN.
--- NOTE | 2023-12-02 23:19 | NUR ---
MAGNESIUM SULFATE INFUSION TURNED OFF AT 2247.
[2023-12-03 02:18] LABS: Albumin, Blood 2.4 g/dL (3.4-5.0); Albumin/Globulin Ratio 0.7 (0.8-1.8); Bilirubin, Total 0.2 mg/dL (0.1-1.0); Bun/Creatinine Ratio 14.7 (12.0-20.0); Calcium, Blood 6.7 mg/dL (8.5-10.1); Creatinine, Blood 0.68 mg/dL (0.40-1.00); Globulin, Blood 3.6 g/dL (2.2-4.0); Hemoglobin 9.9 g/dL (11.5-16.0); Magnesium, Blood 4.3 mg/dL (1.6-2.4); Mean Corpuscular HGB 29.8 pg (26.0-34.0); Mean Corpuscular HGB Conc 31.9 g/dL (31.5-36.5); Mean Corpuscular Volume 93 fL (80-100); Mean Platelet Volume 11.5 fL (9.1-12.4); Platelet Count 263 K/mm3 (150-400); Potassium, Blood 3.6 mmol/L (3.5-5.5); RDW Coefficient Variation 13.4 % (11.7-14.2); RDW Standard Deviation 45.8 fL (35.1-46.3); Red Blood Cell Count 3.32 M/mm3 (3.80-5.20); White Blood Cell Count 8.57 K/mm3 (4.00-11.30)
[2023-12-03 03:25] VITALS: BP 117/65
[2023-12-03 04:05] VITALS: BP 127/73
--- NOTE | 2023-12-03 04:06 | NUR ---
6873, RN INTO ROOM TO SEE IF PT NEEDS HELP WITH NB. RN ENTERS ROOM, PT STATES THAT HER CHEST PAIN AND "TIGHTNESS" HAS CAME BACK. RATES PAIN 8/10. BIOX 93%+. CHEST SOUNDS CLEAR. RN OUT OF ROOM TO HAVE ELECTROMECHANICAL ENGINEER FURTHER ASSESS PT AND FOR RN TO CALL PROVIDER. SPOKE WITH . RELAYED PT'S COMPAINT AND SX AND MOST RECENT BNP VALUE. RN INQUIRED ABOUT LASIX AND 12 LEAD EKG, DECLINES THESE AT THIS TIME. ORDERS RECEIVED FOR 2 VIEW CHEST X-RAY NOW. RN TO CALL WITH X-RAY RESULTS. NO FURTHER ORDERS RECEIVED AT THIS TIME.
--- NOTE | 2023-12-03 04:16 | NUR ---
PT OFF UNIT FOR CHEST X-RAY
[2023-12-03] MEDS ORDERED: Furosemide 10 MG / ML 2ML Vial IV ONE (04:30)
--- NOTE | 2023-12-03 04:31 | NUR ---
PT BACK ON UNIT
--- NOTE | 2023-12-03 05:00 | NUR ---
DR CARR AT BEDSIDE. ASSESSMENT DONE AND DISCUSSING POC. CXR WNL, WILL SEE HOW PT FEELS AFTER TYLENOL AND LASIX START WORKING. ORDER FOR FAMOTIDINE RECEIVED. MAY ALSO TRY MUSCLE RELAXER IF NO RELIEF OF CHEST DISCOMFORT.
[2023-12-03] MEDS ORDERED: Famotidine 20 MG Tab PO ONE (05:15)
[2023-12-03] MEDS ORDERED: Cyclobenzaprine HCl 10 MG Tab PO PRN (05:35)
[2023-12-03 07:44] VITALS: BP 116/68
[2023-12-03 12:08] VITALS: BP 131/73
[2023-12-03 15:37] VITALS: BP 135/83
[2023-12-03 15:38] VITALS: BP 129/74
--- NOTE | 2023-12-03 17:10 | NUR ---
12/03/23 1600 given dc instructions written adn verbal with pt verbalizing understanding. pt made follow up visit to see Dr Salinas on [place] at 10:[address] Kidd. Pt given very specific instructions on her activity and signs to look for to return to hospital
[2023-12-04] MEDS ORDERED: LABE200 PO (03:22)
[2023-12-04] MEDS ORDERED: Keflex500 MG PO (05:00)
== END 2023-12-03 16:45 | disposition home or self-care (01) ==
LOC: OBS 20:23 → BC 20:23 → OBS 22:05 → BC 22:06 → OBS 22:06 → BC 22:07
PROVIDERS: ADMIT Family Medicine
DX: O14.15 Severe pre-eclampsia, complicating the puerperium (principal); R07.89 Other chest pain; Z87.74 Personal history of (corrected) congenital malformations of heart and circulatory system; Z86.718 Personal history of other venous thrombosis and embolism; Z88.0 Allergy status to penicillin; Z88.5 Allergy status to narcotic agent; Z79.82 Long term (current) use of aspirin
CPT/HCPCS: 36415; 71046; 80053; 82570; 83615; 83735; 83880; 84156; 85025; 85027; 85384; 85610; 85730; 93306; 96372; 96374; 96375; 96376; A9270; G0378; J1650; J1940; J3475; J7120

== ENCOUNTER 2023-12-04 03:03 | Emergency (ER) | payer OTHER ==
[~2023-12-04] VITALS: Ht 162.6 cm; Wt 104.3 kg
[~2023-12-04 03:03] MED LIST changes: +ENOX40I SC; +PRENATAL TABLE1 EAC2 PO
[2023-12-04 03:22] LABS: BASOPHILS ABSOLUTE AUTO 0.04 K/mm3 (0.00-0.23); BASOPHILS PERCENT AUTO 0 % (0-2); EOSINOPHILS PERCENT AUTO 2 % (0-6); Hematocrit 31.3 % (33.0-51.0); Hemoglobin 10.1 g/dL (11.5-16.0); IMMATURE GRAN ABSOLUTE AUTO 0.04 K/mm3 (0.00-0.10); IMMATURE GRAN PERCENT AUTO 0 % (0-1); LYMPHOCYTES ABSOLUTE AUTO 1.86 K/mm3 (0.84-5.20); LYMPHOCYTES PERCENT AUTO 21 % (21-46); MONOCYTES ABSOLUTE AUTO 0.85 K/mm3 (0.16-1.47); MONOCYTES PERCENT AUTO 9 % (4-13); Mean Corpuscular HGB 29.9 pg (26.0-34.0); Mean Corpuscular HGB Conc 32.3 g/dL (31.5-36.5); Mean Corpuscular Volume 93 fL (80-100); Mean Platelet Volume 11.5 fL (9.1-12.4); NEUTROPHILS ABSOLUTE AUTO 6.05 K/mm3 (1.96-9.15); NEUTROPHILS PERCENT AUTO 67 % (41-73); Platelet Count 279 K/mm3 (150-400); RDW Coefficient Variation 13.4 % (11.7-14.2); Red Blood Cell Count 3.38 M/mm3 (3.80-5.20); White Blood Cell Count 9.04 K/mm3 (4.00-11.30)
[2023-12-04] MEDS ORDERED: LABE200 PO (03:22)
[2023-12-04 03:41] LABS: Albumin, Blood 2.7 g/dL (3.4-5.0); Albumin/Globulin Ratio 0.7 (0.8-1.8); Bilirubin, Total 0.3 mg/dL (0.1-1.0); Bun/Creatinine Ratio 14.6 (12.0-20.0); Calcium, Blood 8.4 mg/dL (8.5-10.1); Creatinine, Blood 0.62 mg/dL (0.40-1.00); Globulin, Blood 3.8 g/dL (2.2-4.0); Potassium, Blood 3.9 mmol/L (3.5-5.5); Total Protein, Blood 6.5 g/dL (6.4-8.2)
[2023-12-04 03:56] LABS: Source, Urine Clean Catch
[2023-12-04 03:58] LABS: Bilirubin, Urine Neg (Neg); Blood, Urine 5+ (Neg); Glucose Qualitative, Urine Neg (Neg); Ketones, Urine Neg (Neg); Leukocyte Esterase, Urine 3+ (Neg); Nitrite, Urine Neg (Neg); Protein, Urine 1+ (Neg); Specific Gravity, Urine 1.005 (1.003-1.022); Urobilinogen, Urine NORM (Normal); pH, Urine 6.5 (5.0-8.0)
[2023-12-04 04:03] LABS: Appearance, Urine Hazy (Clear); Color, Urine Pale Yellow (P-Yellow)
[2023-12-04 04:04] LABS: Bacteria Mod /hpf; Red Blood Cells, Urine 0-2 /hpf (0-2); Squamous Epithelial Cells Few /hpf (Few); White Blood Cells, Urine 25-50 /hpf (0-5)
[2023-12-04] MEDS ORDERED: Cephalexin Monohydrate 500 MG Cap PO ONE (04:45)
[2023-12-04] MEDS ORDERED: Keflex500 MG PO (05:00)
[2023-12-04 05:01] VITALS: BP 138/78
== END 2023-12-04 05:02 | disposition home or self-care (01) ==
LOC: ER 03:03
PROVIDERS: Emergency Medicine
DX: R07.89 Other chest pain (principal); N39.0 Urinary tract infection, site not specified; Z79.82 Long term (current) use of aspirin; Z79.899 Other long term (current) drug therapy; Z88.0 Allergy status to penicillin; Z88.5 Allergy status to narcotic agent
CPT/HCPCS: 71046; 80053; 81001; 83880; 84484; 85025; 99285-25; A9270

== ENCOUNTER → 2024-03-22 | Outpatient (CLI) | payer OTHER ==
[~2024-03-22] MED LIST changes: +Keflex500 MG PO; +LABE200 PO
[2024-03-22 18:27] LABS: Source, Urine Clean Catch
[2024-03-22 18:34] LABS: Appearance, Urine Hazy (Clear); Bilirubin, Urine Neg (Neg); Blood, Urine Neg (Neg); Glucose Qualitative, Urine Neg (Neg); Ketones, Urine Neg (Neg); Leukocyte Esterase, Urine 2+ (Neg); Nitrite, Urine Neg (Neg); Protein, Urine Neg (Neg); Urobilinogen, Urine NORM (Normal)
[2024-03-22 18:57] LABS: Bacteria Many /hpf; Color, Urine Pale Yellow (P-Yellow); Red Blood Cells, Urine 0-2 /hpf (0-2); Squamous Epithelial Cells Many /hpf (Few)
== END | disposition home or self-care (01) ==
LOC: LAB 16:34 → LAB SHORT 16:34
PROVIDERS: Obstetrics & Gynecology
DX: R30.0 Dysuria (principal)
CPT/HCPCS: 81001; 87086

== ENCOUNTER 2024-05-06 17:04 | Emergency (ER) | payer OTHER ==
[~2024-05-06] VITALS: Ht 162.6 cm; Wt 99.8 kg
[2024-05-06 17:28] VITALS: BP 148/85
[2024-05-06] MEDS ORDERED: DiphenhydrAMINE HCL 25 MG Cap PO ONE (19:05)
[2024-05-06] MEDS ORDERED: Metoclopramide HCl 10 MG Tab PO ONE (19:05)
[2024-05-06] MEDS ORDERED: Ondansetron 4 MG SoluTab SL ONE (19:05)
[2024-05-06] MEDS ORDERED: LIDOCAINE1 EACH TOP (19:57)
== END 2024-05-06 20:30 | disposition home or self-care (01) ==
LOC: ER 17:04
DX: S09.90XA Unspecified injury of head, initial encounter (principal); M54.2 Cervicalgia; W01.0XXA Fall on same level from slipping, tripping and stumbling without subsequent striking against object, initial encounter; Z79.899 Other long term (current) drug therapy; Z79.82 Long term (current) use of aspirin; Z88.0 Allergy status to penicillin; Z88.5 Allergy status to narcotic agent
CPT/HCPCS: 70450; 72125; 99283-25; A9270

== ENCOUNTER 2024-05-15 22:51 | Emergency (ER) | payer OTHER ==
[~2024-05-15] VITALS: Ht 160 cm; Wt 99.8 kg
[~2024-05-15 22:51] MED LIST changes: +LIDOCAINE1 EACH TOP
[2024-05-15 23:21] VITALS: BP 166/100
[2024-05-15] MEDS ORDERED: NS 1,000 ML IV SCH (23:30)
[2024-05-15 23:55] LABS: BASOPHILS ABSOLUTE AUTO 0.08 K/mm3 (0.00-0.23); BASOPHILS PERCENT AUTO 1 % (0-2); EOSINOPHILS ABSOLUTE AUTO 0.12 K/mm3 (0.00-0.68); EOSINOPHILS PERCENT AUTO 1 % (0-6); Hematocrit 39.4 % (33.0-51.0); Hemoglobin 12.6 g/dL (11.5-16.0); IMMATURE GRAN ABSOLUTE AUTO 0.05 K/mm3 (0.00-0.10); IMMATURE GRAN PERCENT AUTO 0 % (0-1); LYMPHOCYTES ABSOLUTE AUTO 1.29 K/mm3 (0.84-5.20); LYMPHOCYTES PERCENT AUTO 11 % (21-46); MONOCYTES ABSOLUTE AUTO 1.14 K/mm3 (0.16-1.47); MONOCYTES PERCENT AUTO 10 % (4-13); Mean Corpuscular HGB 27.9 pg (26.0-34.0); Mean Corpuscular Volume 87 fL (80-100); Mean Platelet Volume 10.5 fL (9.1-12.4); NEUTROPHILS ABSOLUTE AUTO 9.33 K/mm3 (1.96-9.15); NEUTROPHILS PERCENT AUTO 78 % (41-73); Platelet Count 334 K/mm3 (150-400); RDW Coefficient Variation 13.6 % (11.7-14.2); RDW Standard Deviation 43.8 fL (35.1-46.3); Red Blood Cell Count 4.52 M/mm3 (3.80-5.20); White Blood Cell Count 12.01 K/mm3 (4.00-11.30)
[2024-05-16 00:29] LABS: Albumin, Blood 3.6 g/dL (3.4-5.0); Albumin/Globulin Ratio 0.9 (0.8-1.8); Bilirubin, Total 0.4 mg/dL (0.1-1.0); Bun/Creatinine Ratio 21.8 (12.0-20.0); Calcium, Blood 9.5 mg/dL (8.5-10.1); Creatinine, Blood 0.69 mg/dL (0.40-1.00); Potassium, Blood 3.6 mmol/L (3.5-5.5); Total Protein, Blood 7.6 g/dL (6.4-8.2)
== END 2024-05-16 00:57 | disposition home or self-care (01) ==
LOC: ER 22:51
PROVIDERS: Student in an Organized Health Care Education/Training Program
DX: J02.0 Streptococcal pharyngitis (principal); Z95.2 Presence of prosthetic heart valve; Z88.0 Allergy status to penicillin; Z88.5 Allergy status to narcotic agent; Z79.82 Long term (current) use of aspirin; Z79.899 Other long term (current) drug therapy
CPT/HCPCS: 80053; 85025; 96360; 99283; J7030

== ENCOUNTER → 2024-06-18 | Outpatient (CLI) | payer OTHER ==
[2024-06-18 18:13] LABS: Source, Urine Clean Catch
[2024-06-18 19:18] LABS: Bilirubin, Urine Neg (Neg); Blood, Urine Neg (Neg); Color, Urine Yellow (P-Yellow); Glucose Qualitative, Urine Neg (Neg); Ketones, Urine Neg (Neg); Leukocyte Esterase, Urine 1+ (Neg); Nitrite, Urine Neg (Neg); Protein, Urine 1+ (Neg); Specific Gravity, Urine 1.015 (1.003-1.022); Urobilinogen, Urine NORM (Normal); pH, Urine 6.5 (5.0-8.0)
[2024-06-18 19:31] LABS: Appearance, Urine Hazy (Clear)
[2024-06-18 19:32] LABS: Amorphous Light (0-Heavy); Bacteria Many /hpf; Mucus Mod (0-Heavy); Red Blood Cells, Urine 0-2 /hpf (0-2); Squamous Epithelial Cells Many /hpf (Few); Transitional Epithelial Cells Rare /hpf (0-Rare)
[2024-06-18 20:26] LABS: Candida Group, PCR NOT DETECTED (NOT DETECT); Candida glabrata-krusei, PCR NOT DETECTED (NOT DETECT)
[2024-06-18 20:38] LABS: Bacterial Vaginosis PCR Positive (NEGATIVE)
== END | disposition home or self-care (01) ==
LOC: LAB 18:11 → LAB SHORT 18:11
PROVIDERS: Family Medicine
DX: R35.0 Frequency of micturition (principal)
CPT/HCPCS: 81001; 81515; 87086

== ENCOUNTER → 2024-10-27 | Outpatient (CLI) | payer OTHER ==
[2024-10-27 15:27] LABS: Source, Urine Clean Catch
[2024-10-27 19:00] LABS: Appearance, Urine Clear (Clear); Bilirubin, Urine Neg (Neg); Blood, Urine Neg (Neg); Color, Urine Yellow (P-Yellow); Glucose Qualitative, Urine Neg (Neg); Ketones, Urine Neg (Neg); Leukocyte Esterase, Urine Neg (Neg); Nitrite, Urine Neg (Neg); Protein, Urine 1+ (Neg); Specific Gravity, Urine 1.015 (1.003-1.022); Urobilinogen, Urine NORM (Normal); pH, Urine 6.5 (5.0-8.0)
[2024-10-28 15:02] LABS: Candida Group, PCR NOT DETECTED (NOT DETECT); Candida glabrata-krusei, PCR NOT DETECTED (NOT DETECT)
[2024-10-28 15:08] LABS: Bacterial Vaginosis PCR Positive (NEGATIVE)
== END | disposition home or self-care (01) ==
LOC: LAB 15:23 → LAB SHORT 15:23
PROVIDERS: Obstetrics & Gynecology
DX: N76.0 Acute vaginitis (principal); R30.0 Dysuria
CPT/HCPCS: 81515

== ENCOUNTER → 2024-11-23 | Outpatient (CLI) | payer OTHER ==
[2024-11-23 17:39] LABS: Source, Urine Clean Catch
[2024-11-23 19:29] LABS: Bilirubin, Urine Neg (Neg); Color, Urine Yellow (P-Yellow); Glucose Qualitative, Urine Neg (Neg); Ketones, Urine Neg (Neg); Leukocyte Esterase, Urine 1+ (Neg); Protein, Urine 1+ (Neg); Specific Gravity, Urine 1.015 (1.003-1.022); Urobilinogen, Urine NORM (Normal)
[2024-11-23 20:15] LABS: Red Blood Cells, Urine 0-2 /hpf (0-2)
== END ==
LOC: LAB 17:38 → LAB SHORT 17:38
PROVIDERS: Obstetrics & Gynecology
DX: R30.0 Dysuria (principal)
CPT/HCPCS: 81001; 87086

== ENCOUNTER 2024-12-07 11:59 | Emergency (ER) | payer OTHER ==
[~2024-12-07] VITALS: Ht 160 cm; Wt 99.8 kg
[2024-12-07 12:04] VITALS: BP 146/88
[2024-12-07 12:47] LABS: BASOPHILS ABSOLUTE AUTO 0.05 K/mm3 (0.00-0.23); BASOPHILS PERCENT AUTO 1 % (0-2); EOSINOPHILS ABSOLUTE AUTO 0.10 K/mm3 (0.00-0.68); EOSINOPHILS PERCENT AUTO 1 % (0-6); Hematocrit 41.7 % (33.0-51.0); Hemoglobin 13.4 g/dL (11.5-16.0); IMMATURE GRAN ABSOLUTE AUTO 0.02 K/mm3 (0.00-0.10); IMMATURE GRAN PERCENT AUTO 0 % (0-1); LYMPHOCYTES ABSOLUTE AUTO 1.88 K/mm3 (0.84-5.20); LYMPHOCYTES PERCENT AUTO 19 % (21-46); MONOCYTES ABSOLUTE AUTO 0.95 K/mm3 (0.16-1.47); MONOCYTES PERCENT AUTO 10 % (4-13); Mean Corpuscular HGB Conc 32.1 g/dL (31.5-36.5); Mean Corpuscular Volume 88 fL (80-100); NEUTROPHILS ABSOLUTE AUTO 6.75 K/mm3 (1.96-9.15); NEUTROPHILS PERCENT AUTO 69 % (41-73); NRBC ABSOLUTE 0.00 K/mm3 (0.00-0.02); NRBC Auto 0.0 /100 WBC (0.0-0.2); Platelet Count 304 K/mm3 (150-400); RDW Coefficient Variation 13.0 % (11.7-14.2); RDW Standard Deviation 42.3 fL (35.1-46.3)
[2024-12-07 13:35] LABS: Alanine Aminotransfer (ALT/SGP 40.0 U/L (12-78); Albumin, Blood 3.8 g/dL (3.4-5.0); Albumin/Globulin Ratio 1.0 (0.8-1.8); Anion Gap 6.0 mmol/L (3-11); Aspartate Aminotrans (AST/SGOT 23.0 U/L (12-37); Bilirubin, Total 0.9 mg/dL (0.1-1.0); Blood Urea Nitrogen 10.0 mg/dL (8-24); CO2, Blood 26.0 mmol/L (21-32); Calcium, Blood 8.7 mg/dL (8.5-10.1); Chloride, Blood 107.0 mmol/L (98-108); Creatinine, Blood 0.71 mg/dL (0.40-1.00); Globulin, Blood 3.9 g/dL (2.2-4.0); Glucose, Blood 92.0 mg/dL (70-99); Potassium, Blood 3.4 mmol/L (3.5-5.5); Sodium, Blood 136.0 mmol/L (136-145); Total Protein, Blood 7.7 g/dL (6.4-8.2)
== END 2024-12-07 14:15 | disposition home or self-care (01) ==
LOC: ER 11:59
PROVIDERS: Physician Assistant
DX: F41.9 Anxiety disorder, unspecified (principal); M79.661 Pain in right lower leg; Z95.2 Presence of prosthetic heart valve; Z88.0 Allergy status to penicillin; Z88.5 Allergy status to narcotic agent; Z79.01 Long term (current) use of anticoagulants; Z79.82 Long term (current) use of aspirin; Z79.899 Other long term (current) drug therapy; Z59.89 Other problems related to housing and economic circumstances
CPT/HCPCS: 71260; 80053; 85025; 93005; 93010; 93971; 99284-25; Q9967

== ENCOUNTER → 2025-01-07 | Outpatient (CLI) | payer OTHER ==
[2025-01-07 19:41] LABS: Bacterial Vaginosis PCR Negative (NEGATIVE); Candida glabrata-krusei, PCR NOT DETECTED (NOT DETECT)
[2025-01-07 20:22] LABS: Candida Group, PCR DETECTED (NOT DETECT)
== END ==
LOC: LAB 17:15 → LAB SHORT 17:15
PROVIDERS: Obstetrics & Gynecology
DX: N76.0 Acute vaginitis (principal)
CPT/HCPCS: 81515